=== PATIENT | male | born 1990 | race Hispanic/Latino ===

== ENCOUNTER 2018-05-22 12:14 | Emergency (ER) | payer BC, OTHER ==
[2018-05-22 12:22] VITALS: RESP 16
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
[2018-05-22 13:33] VITALS: BP 124/80; PULSE 68; TEMP 98; O2SAT 100
== END 2018-05-22 13:31 | disposition home or self-care (01) ==
LOC: ED 12:14
DX: M25.562 Pain in left knee (principal); V49.49XA Driver injured in collision with other motor vehicles in traffic accident, initial encounter; Y92.410 Unspecified street and highway as the place of occurrence of the external cause